=== PATIENT | male | born 1980 | race African-American/Black ===

== ENCOUNTER 2016-12-11 16:44 | Inpatient (IN) | payer OTHER ==
[2016-12-11 18:54] VITALS: BMI 25.1
--- NOTE | 2016-12-11 20:58 | HP ---
CIWA Score - CIWA Score Nausea/Vomitin-No Nausea/No Vomiting Muscle Tremors: None Anxiety: 4-Mod. Anxious/Guarded Agitation: 4-Moderately Restless Paroxysmal Sweats: 1-Minimal Palms Moist Orientation: 1-Uncertain about Date Tacttile Disturbances: 0-None Auditory Disturbances: 0-None Visual Disturbances: 4-Moderate Hallucinations Headache: 2-Mild CIWA-Ar Total Score: 16 Admission ROS BHS - HPI Chief Complaint: C/O WITHDRAWALS SX'S FROM ALCOHOL. SEEKING DETOX TXMENT Allergies/Adverse Reactions: Allergies Allergy/AdvReac Type Severity Reaction Status Date / Time No Known Allergies Allergy Verified 12/11/16 20:52 History of Present Illness: 36 Y.O. MALE WITH ALCOHOLISM ADMITTED TO DETOX. THIS IS CLIENTS FIRST TIME IN DETOX TXMENT. WAS IN AN OUT PATIENT TXMENT PROGRAM 04/2016.REPORTS A 3 YEAR HX OF ALCOHOL DEPENDENCE. SELF REFERRED. DENIES ANY SIGNIFICANT PERIOD OF CLEAN TIME. Exam Limitations: No Limitations - Ebola screening Have you traveled outside of the country in the last 21 days: No Have you had contact with anyone from an Ebola affected area: No Have you been sick,other than usual withdrawal symptoms: No Do you have a fever: No - Review of Systems Constitutional: Chills, Loss of Appetite, Night Sweats EENT: reports: No Symptoms Reported Respiratory: reports: No Symptoms reported Cardiac: reports: No Symptoms Reported GI: reports: Poor Appetite, Poor Fluid Intake, Vomiting : reports: No Symptoms Reported Musculoskeletal: reports: Back Pain Integumentary: reports: No Symptoms Reported Neuro: reports: No Symptoms reported Endocrine: reports: No Symptoms Reported Hematology: reports: No Symptoms Reported Psychiatric: reports: Anxious, Depressed Other Systems: Reviewed and Negative Patient History - Patient Medical History Hx Anemia: No Hx Asthma: No Hx Chronic Obstructive Pulmonary Disease (COPD): No Hx Cancer: No Hx Cardiac Disorders: No Hx Congestive Heart Failure: No Hx Hypertension: No Hx Hypercholesterolemia: No Hx Pacemaker: No HX Cerebrovascular Accident: No Hx Seizures: No Hx Dementia: No Hx Diabetes: No Hx Gastrointestinal Disorders: No Hx Liver Disease: No Hx Genitourinary Disorders: No Hx Sexually Transmitted Disorders: No Hx Renal Disease (ESRD): No Hx Thyroid Disease: No Hx Human Immunodeficiency Virus (HIV): No Hx Hepatitis C: No Hx Depression: Yes (NO MGMT) Hx Suicide Attempt: No Hx Bipolar Disorder: No Hx Schizophrenia: No Other Medical History: DENIES - Patient Surgical History Past Surgical History: No - PPD History Previous Implant?: Yes Documented Results: Negative w/o proof Implanted On Prior [facility] Admission?: Yes PPD to be Administered?: Yes - Smoking Cessation Smoking history: Current every day smoker Have you smoked in the past 12 months: Yes Aproximately how many cigarettes per day: 10 Cigars Per Day: 0 Hx Chewing Tobacco Use: Yes Initiated information on smoking cessation: Yes 'Breaking Loose' booklet given: 12/11/16 - Substance & Tx. History Hx Alcohol Use: Yes Hx Substance Use: Yes Substance Use Type: Alcohol, Marijuana Hx Substance Use Treatment: Yes ([facility]) - Substances Abused BEER/LIQUOR Route: Oral Frequency: Daily Amount used: 3-40OZ/ 2LITER Age of first use: 23 Date of Last Use: 12/10/16 THC Route: Smoking Frequency: Daily Amount used: 3 BLUNTS Age of first use: 20 Date of Last Use: 12/10/16 Family Disease History - Family Disease History Family Disease History: Other: Father (ALCOHOLISM) Admission Physical Exam S - Vital Signs Vital Signs: Vital Signs - 24 hr 12/11/16 18:51 Temperature 97.9 F Pulse Rate 69 Respiratory 20 Rate Blood Pressure 112/73 - Physical General Appearance: Yes: Appropriately Dressed, Anxious HEENTM: Yes: EOMI, Normocephalic, Normal Voice, Pharynx Normal Respiratory: Yes: Chest Non-Tender, Lungs Clear, Normal Breath Sounds, No Respiratory Distress, No Accessory Muscle Use Neck: Yes: No masses,lesions,Nodules, Supple, Trachea in good position Breast: Yes: Breast Exam Deferred Cardiology: Yes: Regular Rhythm, Regular Rate, S1, S2 Abdominal: Yes: Normal Bowel Sounds, Non Tender, Soft Genitourinary: Yes: Within Normal Limits Back: Yes: Normal Inspection Musculoskeletal: Yes: full range of Motion, Gait Steady Extremities: Yes: Normal Capillary Refill, Normal Range of Motion, Non-Tender, Tremors Neurological: Yes: Alert, Motor Strength 5/5 Integumentary: Yes: Normal Color, Dry, Warm Lymphatic: Yes: Within Normal Limits - Diagnostic (1) Alcohol dependence with uncomplicated withdrawal Current Visit: Yes Status: Chronic (2) Cannabis dependence, uncomplicated Current Visit: Yes Status: Chronic (3) Nicotine dependence Current Visit: Yes Status: Chronic Qualifiers: Nicotine product type: cigarettes Substance use status: uncomplicated Qualified Code(s): F17.210 - Nicotine dependence, cigarettes, uncomplicated; F17.210 - Nicotine dependence, cigarettes, uncomplicated Cleared for Admission S - Detox or Rehab [facility] Level of Care: Medically Managed Detox Regimen/Protocol: Librium BHS Breath Alcohol Content Breath Alcohol Content: 0 Urine Drug Screen - Results Drug Screen Negative: No Urine Drug Screen Results: THC-Marijuana
[2016-12-11] MEDS ORDERED: MAGNESIUM HYDROX 2400MG/30ML ORAL SUSPENSION 30 ML CUP PO PRN (21:15)
[2016-12-11] MEDS ORDERED: MAG HYDROX/AL HYDROX/SIMETH 30 ML UNIT-DOSE CUP PO PRN (21:15)
[2016-12-11] MEDS ORDERED: MAGNESIUM CITRATE 300 ML BOTTLE PO PRN (21:15)
[2016-12-11] MEDS ORDERED: IBUPROFEN 400 MG TABLET (FP) PO PRN (21:15)
[2016-12-11] MEDS ORDERED: hydrOXYzine PAMOATE 50 MG CAPSULE (FP) PO PRN (21:15)
[2016-12-11] MEDS ORDERED: MENTHOL/PHENOL 1 EACH UD MM PRN (21:15)
[2016-12-11] MEDS ORDERED: guaiFENesin/D-METHORPHAN HB 10 ML UNIT-DOSE CUPS PO PRN (21:15)
[2016-12-11] MEDS ORDERED: P-EPHED 60MG/TRIPROLIDI 2.5MG TABLET PO PRN (21:15)
[2016-12-11] MEDS ORDERED: LOPERAMIDE HCL 2 MG CAPSULE PO PRN (21:15)
[2016-12-11] MEDS ORDERED: chlordiazePOXIDE HCL 25 MG CAPSULE PO PRN (21:15)
[2016-12-11] MEDS ORDERED: ACETAMINOPHEN 325 MG TABLET (FP) PO PRN (21:15)
[2016-12-11] MEDS: chlordiazePOXIDE HCL 25 MG CAPSULE PO SCH (22:57)
[2016-12-11] MEDS: THIAMINE HCL 100 MG TABLET (FP) PO SCH (22:57)
[2016-12-11] MEDS: NICOTINE 14 MG/24 HOURS TOPICAL PATCH TD SCH (23:05)
[2016-12-11 23:18] LABS: URINE APPEARANCE CLEAR; URINE BILIRUBIN NEGATIVE (NEGATIVE); URINE BLOOD 2+ (NEGATIVE); URINE COLOR YELLOW; URINE GLUCOSE (UA) NEGATIVE (NEGATIVE); URINE KETONE 1+ (NEGATIVE); URINE LEUK ESTERASE NEGATIVE (NEGATIVE); URINE NITRITE NEGATIVE (NEGATIVE); URINE PROTEIN NEGATIVE (NEGATIVE); URINE UROBILINOGEN NEGATIVE mg/dL (0.2-1.0)
[2016-12-11 23:36] LABS: URINE MUCUS RARE; URINE RBC 11 /hpf (0-3); URINE WBC <1 /hpf (3-5)
[2016-12-12] MEDS: chlordiazePOXIDE HCL 25 MG CAPSULE PO SCH ×4 (06:00→22:25)
--- NOTE | 2016-12-12 07:41 | CONSULT ---
[facility] Psychiatric Consult - Data Date of interview: 12/12/16 Admission source: [facility] Identifying data: This is 36 years old male with no psychiatric hospitalization history intoxicated with: Alcohol, Cannabis, Nicotine Substance Abuse History: - Smoking Cessation. Smoking history: Current every day smoker. Have you smoked in the past 12 months: Yes. Aproximately how many cigarettes per day: 10. Cigars Per Day: 0. Hx Chewing Tobacco Use: Yes. Initiated information on smoking cessation: Yes. 'Breaking Loose' booklet given : 12/11/16. - Substance & Tx. History. Hx Alcohol Use: Yes. Hx Substance Use : Yes. Substance Use Type: Alcohol, Marijuana. Hx Substance Use Treatment: [facility] ([facility] - Substances Abused. BEER/LIQUOR. Route: Oral. Frequency: Daily. Amount used: 3-40OZ/ 2LITER. Age of first use: 23. Date of Last Use: 12/10/16. THC. Route: Smoking. Frequency: Daily. Amount used: 3 BLUNTS. Age of first use: 20. Date of Last Use: 12/10/16 Medical History: Denies significant medical issues Psychiatric History: Denies past psychiatric history Physical/Sexual Abuse/Trauma History: Denies Additional Comment: Observation. Detox Unit Care Protocol Mental Status Exam - Mental Status Exam Alert and Oriented to: Person Cognitive Function: Fair Patient Appearance: Unkempt Mood: Sad Affect: Flat Patient Behavior: Sedated Speech Pattern: Delayed Voice Loudness: Mildly Soft/Quiet Thought Process: Circumstantial Thought Disorder: Being Controlled Hallucinations: Denies Suicidal Ideation: Denies Homicidal Ideation: Denies Insight/Judgement: Fair Sleep: Difficulty falling asleep Appetite: Weight loss Muscle strength/Tone: Normal Gait/Station: Normal Additional Comments: Observation. Detox Unit Care Protocol Psychiatric Findings - Problem List ([place] 1, 2,3) (1) Alcohol dependence with uncomplicated withdrawal Current Visit: Yes Status: Chronic (2) Cannabis dependence, uncomplicated Current Visit: Yes Status: Chronic (3) Nicotine dependence Current Visit: Yes Status: Chronic Qualifiers: Nicotine product type: cigarettes Substance use status: uncomplicated Qualified Code(s): F17.210 - Nicotine dependence, cigarettes, uncomplicated; F17.210 - Nicotine dependence, cigarettes, uncomplicated (4) Drug-induced mood disorder Current Visit: Yes Status: Suspected - Initial Treatment Plan Initial Treatment Plan: Observation. Detox Unit Care Protocol
[2016-12-12 09:43] LABS: MCH 32.9 pg (25.7-33.7); MCHC 33.8 g/dl (32.0-35.9); MEAN CELL VOLUME 97.3 fl (80-96); MEAN PLT VOLUME 8.1 fl (7.5-11.1); PLATELET COUNT 280 K/MM3 (134-434); RDW 12.7 % (11.9-15.9); WHITE BLOOD COUNT 7.6 K/mm3 (4.0-10.0)
[2016-12-12 10:06] LABS: ALBUMIN 3.6 g/dl (3.4-5.0); ALK PHOS 65 U/L (45-117); ANION GAP 5 (8-16); CALCIUM 9.1 mg/dL (8.5-10.1); CO2 31 mmol/L (21-32); CREATININE 1.1 mg/dL (0.7-1.3); GLUCOSE,RANDOM 103 mg/dL (74-106); SGOT/AST 18 U/L (15-37); SGPT/ALT 23 U/L (12-78); TOT PROT 6.9 g/dl (6.4-8.2)
[2016-12-12] MEDS: NICOTINE 14 MG/24 HOURS TOPICAL PATCH TD SCH (10:35)
[2016-12-12] MEDS: PRENATAL VITAMINS W/ FOLIC ACID TABLET (FP) PO SCH (10:35)
--- NOTE | 2016-12-12 11:34 | PN ---
S CIWA - CIWA Score Nausea/Vomitin Muscle Tremors: 3 Anxiety: 3 Agitation: 2 Paroxysmal Sweats: 1-Minimal Palms Moist Orientation: 0-Oriented Tacttile Disturbances: 1-Very Mild Itch/Numbness Auditory Disturbances: 1-Very Mild Visual Disturbances: 0-None Headache: 2-Mild CIWA-Ar Total Score: 16 BHS Progress Note (SOAP) Subjective: alert,irritable,anxious,interrupted sleep,tremor Objective: 12/12/16 11:31 Vital Signs Temperature 96.3 F L 12/12/16 10:11 Pulse Rate 54 L 12/12/16 10:11 Respiratory Rate 18 12/12/16 10:11 Blood Pressure 108/64 12/12/16 10:11 O2 Sat by Pulse Oximetry (%) 12/12/16 11:32 ekg sinus bradycardia 55/min no chest pain,no sob,no dizziness Laboratory Last Values WBC 7.6 K/mm3 (4.0-10.0) 12/12/16 07:00 RBC 3.92 M/mm3 (4.00-5.60) L 12/12/16 07:00 Hgb 12.9 GM/dL (11.7-16.9) 12/12/16 07:00 Hct 38.2 % (35.4-49) 12/12/16 07:00 MCV 97.3 fl (80-96) H 12/12/16 07:00 MCH 32.9 pg (25.7-33.7) 12/12/16 07:00 MCHC 33.8 g/dl (32.0-35.9) 12/12/16 07:00 RDW 12.7 % (11.9-15.9) 12/12/16 07:00 Plt Count 280 K/MM3 (134-434) 12/12/16 07:00 MPV 8.1 fl (7.5-11.1) 12/12/16 07:00 Sodium 140 mmol/L (136-145) 12/12/16 07:00 Potassium 4.3 mmol/L (3.5-5.1) 12/12/16 07:00 Chloride 104 mmol/L (98-107) 12/12/16 07:00 Carbon Dioxide 31 mmol/L (21-32) 12/12/16 07:00 Anion Gap 5 (8-16) L 12/12/16 07:00 BUN 17 mg/dL (7-18) 12/12/16 07:00 Creatinine 1.1 mg/dL (0.7-1.3) 12/12/16 07:00 Creat Clearance w eGFR > 60 (>60) 12/12/16 07:00 Random Glucose 103 mg/dL (74-106) 12/12/16 07:00 Calcium 9.1 mg/dL (8.5-10.1) 12/12/16 07:00 Total Bilirubin 1.0 mg/dL (0.2-1.0) 12/12/16 07:00 AST 18 U/L (15-37) 12/12/16 07:00 ALT 23 U/L (12-78) 12/12/16 07:00 Alkaline Phosphatase 65 U/L (45-117) 12/12/16 07:00 Total Protein 6.9 g/dl (6.4-8.2) 12/12/16 07:00 Albumin 3.6 g/dl (3.4-5.0) 12/12/16 07:00 Urine Color Yellow 12/11/16 21:39 Urine Appearance Clear 12/11/16 21:39 Urine pH 5.0 (5.0-8.0) 12/11/16 21:39 Ur Specific [place] >= 1.030 (1.005-1.025) H 12/11/16 21:39 Urine Protein Negative (NEGATIVE) 12/11/16 21:39 Urine Glucose (UA) Negative (NEGATIVE) 12/11/16 21:39 Urine Ketones 1+ (NEGATIVE) H 12/11/16 21:39 Urine Blood 2+ (NEGATIVE) H 12/11/16 21:39 Urine Nitrite Negative (NEGATIVE) 12/11/16 21:39 Urine Bilirubin Negative (NEGATIVE) 12/11/16 21:39 Urine Urobilinogen Negative mg/dL (0.2-1.0) 12/11/16 21:39 Urine RBC 11 /hpf (0-3) 12/11/16 21:39 Urine WBC <1 /hpf (3-5) 12/11/16 21:39 Ur Epithelial Cells Rare /hpf (FEW) 12/11/16 21:39 Urine Mucus Rare 12/11/16 21:39 RPR Titer Nonreactive (NONREACTIVE) 12/12/16 07:00 12/12/16 11:33 labs pending Assessment: 12/12/16 11:33 withdrawal symptom Plan: continue detox
[2016-12-12 11:40] LABS: HIV 1 & 2 AB NEGATIVE; HIV 1 AGp24 NEGATIVE
--- NOTE | 2016-12-12 11:52 | EKG ---
Test Reason : Blood Pressure : / mmHG Vent. Rate : 055 BPM Atrial Rate : 055 BPM P-R Int : 156 ms QRS Dur : 094 ms QT Int : 412 ms P-R-T Axes : 062 069 048 degrees QTc Int : 394 ms SINUS BRADYCARDIA OTHERWISE NORMAL ECG NO PREVIOUS ECGS AVAILABLE Confirmed by MAC ARANGO, ELICIA ([id number]) on 12/12/2016 11:52:26 AM Referred By: Confirmed By:ELICIA WATTS MD
[2016-12-12] MEDS ORDERED: FLU VACCINE QUAD 60 MCG/0.5 ML (MDV 17-18) IM ONE (12:00)
[2016-12-12] MEDS: NICOTINE POLACRILEX 2 MG GUM BC PRN (18:52)
[2016-12-12] MEDS: diphenhydrAMINE HCL 50 MG CAPSULE PO PRN (22:25)
[2016-12-12] MEDS: THIAMINE HCL 100 MG TABLET (FP) PO SCH (22:25)
[2016-12-13] MEDS: chlordiazePOXIDE HCL 25 MG CAPSULE PO SCH ×3 (05:39→17:52)
[2016-12-13] MEDS: PRENATAL VITAMINS W/ FOLIC ACID TABLET (FP) PO SCH (11:01)
[2016-12-13] MEDS: NICOTINE 14 MG/24 HOURS TOPICAL PATCH TD SCH (11:02)
--- NOTE | 2016-12-13 12:40 | PN ---
S CIWA - CIWA Score Nausea/Vomitin Muscle Tremors: 3 Anxiety: 3 Agitation: 2 Paroxysmal Sweats: 1-Minimal Palms Moist Orientation: 0-Oriented Tacttile Disturbances: 1-Very Mild Itch/Numbness Auditory Disturbances: 1-Very Mild Visual Disturbances: 0-None Headache: 2-Mild CIWA-Ar Total Score: 16 BHS Progress Note (SOAP) Subjective: ALERT,IRRITABLE,ANXIOUS,INTERRUPTED SLEEP,TREMOR Objective: 12/13/16 12:39 Vital Signs Temperature 97 F L 12/13/16 10:39 Pulse Rate 62 12/13/16 10:39 Respiratory Rate 20 12/13/16 10:39 Blood Pressure 105/66 12/13/16 10:39 O2 Sat by Pulse Oximetry (%) Laboratory Last Values WBC 7.6 K/mm3 (4.0-10.0) 12/12/16 07:00 RBC 3.92 M/mm3 (4.00-5.60) L 12/12/16 07:00 Hgb 12.9 GM/dL (11.7-16.9) 12/12/16 07:00 Hct 38.2 % (35.4-49) 12/12/16 07:00 MCV 97.3 fl (80-96) H 12/12/16 07:00 MCH 32.9 pg (25.7-33.7) 12/12/16 07:00 MCHC 33.8 g/dl (32.0-35.9) 12/12/16 07:00 RDW 12.7 % (11.9-15.9) 12/12/16 07:00 Plt Count 280 K/MM3 (134-434) 12/12/16 07:00 MPV 8.1 fl (7.5-11.1) 12/12/16 07:00 Sodium 140 mmol/L (136-145) 12/12/16 07:00 Potassium 4.3 mmol/L (3.5-5.1) 12/12/16 07:00 Chloride 104 mmol/L (98-107) 12/12/16 07:00 Carbon Dioxide 31 mmol/L (21-32) 12/12/16 07:00 Anion Gap 5 (8-16) L 12/12/16 07:00 BUN 17 mg/dL (7-18) 12/12/16 07:00 Creatinine 1.1 mg/dL (0.7-1.3) 12/12/16 07:00 Creat Clearance w eGFR > 60 (>60) 12/12/16 07:00 Random Glucose 103 mg/dL (74-106) 12/12/16 07:00 Calcium 9.1 mg/dL (8.5-10.1) 12/12/16 07:00 Total Bilirubin 1.0 mg/dL (0.2-1.0) 12/12/16 07:00 AST 18 U/L (15-37) 12/12/16 07:00 ALT 23 U/L (12-78) 12/12/16 07:00 Alkaline Phosphatase 65 U/L (45-117) 12/12/16 07:00 Total Protein 6.9 g/dl (6.4-8.2) 12/12/16 07:00 Albumin 3.6 g/dl (3.4-5.0) 12/12/16 07:00 Urine Color Yellow 12/11/16 21:39 Urine Appearance Clear 12/11/16 21:39 Urine pH 5.0 (5.0-8.0) 12/11/16 21:39 Ur Specific [place] >= 1.030 (1.005-1.025) H 12/11/16 21:39 Urine Protein Negative (NEGATIVE) 12/11/16 21:39 Urine Glucose (UA) Negative (NEGATIVE) 12/11/16 21:39 Urine Ketones 1+ (NEGATIVE) H 12/11/16 21:39 Urine Blood 2+ (NEGATIVE) H 12/11/16 21:39 Urine Nitrite Negative (NEGATIVE) 12/11/16 21:39 Urine Bilirubin Negative (NEGATIVE) 12/11/16 21:39 Urine Urobilinogen Negative mg/dL (0.2-1.0) 12/11/16 21:39 Urine RBC 11 /hpf (0-3) 12/11/16 21:39 Urine WBC <1 /hpf (3-5) 12/11/16 21:39 Ur Epithelial Cells Rare /hpf (FEW) 12/11/16 21:39 Urine Mucus Rare 12/11/16 21:39 RPR Titer Nonreactive (NONREACTIVE) 12/12/16 07:00 HIV 1&2 Antibody Screen Negative 12/12/16 07:00 HIV P24 Antigen Negative 12/12/16 07:00 Assessment: 12/13/16 12:39 WITHDRAWAL SYMPTOM Plan: CONTINUE DETOX
[2016-12-13] MEDS: NICOTINE POLACRILEX 2 MG GUM BC PRN (17:53)
[2016-12-13] MEDS: THIAMINE HCL 100 MG TABLET (FP) PO SCH (22:11)
[2016-12-13] MEDS: diphenhydrAMINE HCL 50 MG CAPSULE PO PRN (22:12)
[2016-12-13] MEDS: chlordiazePOXIDE 5 MG CAPSULE PO SCH (22:12)
[2016-12-14] MEDS: chlordiazePOXIDE 5 MG CAPSULE PO SCH ×3 (06:28→17:28)
[2016-12-14] MEDS: PRENATAL VITAMINS W/ FOLIC ACID TABLET (FP) PO SCH (10:55)
[2016-12-14] MEDS: NICOTINE 14 MG/24 HOURS TOPICAL PATCH TD SCH (10:57)
--- NOTE | 2016-12-14 11:03 | PN ---
S Progress Note (SOAP) Subjective: alert,irritable,anxious,interrupted sleep Objective: 12/14/16 11:02 Vital Signs Temperature 97.9 F 12/14/16 10:00 Pulse Rate 52 L 12/14/16 10:00 Respiratory Rate 20 12/14/16 10:00 Blood Pressure 103/61 12/14/16 10:00 O2 Sat by Pulse Oximetry (%) Assessment: 12/14/16 11:02 withdrawal symptom Plan: continue detox,discharge in am
[2016-12-14] MEDS: chlordiazePOXIDE HCL 10 MG CAPSULE PO SCH (22:08)
[2016-12-14] MEDS: THIAMINE HCL 100 MG TABLET (FP) PO SCH (22:08)
[2016-12-15] MEDS: chlordiazePOXIDE HCL 10 MG CAPSULE PO SCH (05:32)
[2016-12-15 06:33] VITALS: BP 119/58; PULSE 69; TEMP 97.3
--- NOTE | 2016-12-15 10:54 | DS ---
[facility] Detox Discharge Summary Admission Date: 12/11/16 Discharge Date: 12/15/16 - History Present History: Alcohol Dependence, Cannabis Dependence Pertinent Past History: Denies - Physical Exam Results Vital Signs: Vital Signs Temperature 97.3 F L 12/15/16 06:00 Pulse Rate 69 12/15/16 06:00 Respiratory Rate 18 12/15/16 06:00 Blood Pressure 119/58 12/15/16 06:00 O2 Sat by Pulse Oximetry (%) Pertinent Admission Physical Exam Findings: Withdrawal sx. Laboratory Last Values WBC 7.6 K/mm3 (4.0-10.0) 12/12/16 07:00 RBC 3.92 M/mm3 (4.00-5.60) L 12/12/16 07:00 Hgb 12.9 GM/dL (11.7-16.9) 12/12/16 07:00 Hct 38.2 % (35.4-49) 12/12/16 07:00 MCV 97.3 fl (80-96) H 12/12/16 07:00 MCH 32.9 pg (25.7-33.7) 12/12/16 07:00 MCHC 33.8 g/dl (32.0-35.9) 12/12/16 07:00 RDW 12.7 % (11.9-15.9) 12/12/16 07:00 Plt Count 280 K/MM3 (134-434) 12/12/16 07:00 MPV 8.1 fl (7.5-11.1) 12/12/16 07:00 Sodium 140 mmol/L (136-145) 12/12/16 07:00 Potassium 4.3 mmol/L (3.5-5.1) 12/12/16 07:00 Chloride 104 mmol/L (98-107) 12/12/16 07:00 Carbon Dioxide 31 mmol/L (21-32) 12/12/16 07:00 Anion Gap 5 (8-16) L 12/12/16 07:00 BUN 17 mg/dL (7-18) 12/12/16 07:00 Creatinine 1.1 mg/dL (0.7-1.3) 12/12/16 07:00 Creat Clearance w eGFR > 60 (>60) 12/12/16 07:00 Random Glucose 103 mg/dL (74-106) 12/12/16 07:00 Calcium 9.1 mg/dL (8.5-10.1) 12/12/16 07:00 Total Bilirubin 1.0 mg/dL (0.2-1.0) 12/12/16 07:00 AST 18 U/L (15-37) 12/12/16 07:00 ALT 23 U/L (12-78) 12/12/16 07:00 Alkaline Phosphatase 65 U/L (45-117) 12/12/16 07:00 Total Protein 6.9 g/dl (6.4-8.2) 12/12/16 07:00 Albumin 3.6 g/dl (3.4-5.0) 12/12/16 07:00 Urine Color Yellow 12/11/16 21:39 Urine Appearance Clear 12/11/16 21:39 Urine pH 5.0 (5.0-8.0) 12/11/16 21:39 Ur Specific [place] >= 1.030 (1.005-1.025) H 12/11/16 21:39 Urine Protein Negative (NEGATIVE) 12/11/16 21:39 Urine Glucose (UA) Negative (NEGATIVE) 12/11/16 21:39 Urine Ketones 1+ (NEGATIVE) H 12/11/16 21:39 Urine Blood 2+ (NEGATIVE) H 12/11/16 21:39 Urine Nitrite Negative (NEGATIVE) 12/11/16 21:39 Urine Bilirubin Negative (NEGATIVE) 12/11/16 21:39 Urine Urobilinogen Negative mg/dL (0.2-1.0) 12/11/16 21:39 Urine RBC 11 /hpf (0-3) 12/11/16 21:39 Urine WBC <1 /hpf (3-5) 12/11/16 21:39 Ur Epithelial Cells Rare /hpf (FEW) 12/11/16 21:39 Urine Mucus Rare 12/11/16 21:39 RPR Titer Nonreactive (NONREACTIVE) 12/12/16 07:00 HIV 1&2 Antibody Screen Negative 12/12/16 07:00 HIV P24 Antigen Negative 12/12/16 07:00 labs noted - Treatment Hospital Course: Detox Protocol Followed, Detoxed Safely, Responded well, Discharged Condition Good, Rehab Referral Accepted Patient has Accepted a Rehab Referral to: [facility] - Medication Discharge Medications: Ambulatory Orders NK [No Known Home Medication] 12/11/16 - Diagnosis (1) Alcohol dependence with uncomplicated withdrawal Current Visit: Yes Status: Chronic (2) Cannabis dependence, uncomplicated Current Visit: Yes Status: Chronic (3) Drug-induced mood disorder Current Visit: Yes Status: Suspected (4) Nicotine dependence Current Visit: Yes Status: Chronic Qualifiers: Nicotine product type: cigarettes Substance use status: uncomplicated Qualified Code(s): F17.210 - Nicotine dependence, cigarettes, uncomplicated; F17.210 - Nicotine dependence, cigarettes, uncomplicated - AMA Did Patient Leave Against Medical Advice: No
== END 2016-12-15 08:55 | disposition home or self-care (01) | DRG 775 ==
LOC: YASAS 16:44 → Y6N 20:59
PROVIDERS: ADMIT Internal Medicine; ATTEND Internal Medicine
PROC: HZ2ZZZZ Detoxification Services for Substance Abuse Treatment (ICD-10-PCS; principal; 2016-12-11)
DX: F10.230 Alcohol dependence with withdrawal, uncomplicated (principal); F12.20 Cannabis dependence, uncomplicated; F17.210 Nicotine dependence, cigarettes, uncomplicated; F19.24 Other psychoactive substance dependence with psychoactive substance-induced mood disorder; R00.1 Bradycardia, unspecified
CPT/HCPCS: 36415; 80053; 81003; 81015; 85027; 86593; 87389; 93005; 93010

== ENCOUNTER 2017-04-01 12:11 | Inpatient (IN) | payer OTHER ==
[2017-04-01 15:59] VITALS: BMI 24.7
[2017-04-01] MEDS ORDERED: MAGNESIUM CITRATE 300 ML BOTTLE PO PRN (19:10)
[2017-04-01] MEDS ORDERED: LOPERAMIDE HCL 2 MG CAPSULE PO PRN (19:10)
[2017-04-01] MEDS ORDERED: IBUPROFEN 400 MG TABLET (FP) PO PRN (19:10)
[2017-04-01] MEDS ORDERED: NICOTINE POLACRILEX 2 MG GUM BC PRN (19:10)
[2017-04-01] MEDS ORDERED: MAG HYDROX/AL HYDROX/SIMETH 30 ML UNIT-DOSE CUP PO PRN (19:10)
[2017-04-01] MEDS ORDERED: MENTHOL/PHENOL 1 EACH UD MM PRN (19:10)
[2017-04-01] MEDS ORDERED: ACETAMINOPHEN 325 MG TABLET (FP) PO PRN (19:10)
[2017-04-01] MEDS ORDERED: MAGNESIUM HYDROX 2400MG/30ML ORAL SUSPENSION 30 ML CUP PO PRN (19:10)
[2017-04-01] MEDS ORDERED: P-EPHED 60MG/TRIPROLIDI 2.5MG TABLET PO PRN (19:10)
[2017-04-01] MEDS ORDERED: guaiFENesin/D-METHORPHAN HB 10 ML UNIT-DOSE CUPS PO PRN (19:10)
--- NOTE | 2017-04-01 19:10 | HP ---
CIWA Score - CIWA Score Nausea/Vomitin-Mild Nausea/No Vomiting Muscle Tremors: 4-Moderate,w/Arms Extend Anxiety: 4-Mod. Anxious/Guarded Agitation: 4-Moderately Restless Paroxysmal Sweats: 1-Minimal Palms Moist Orientation: 0-Oriented Tacttile Disturbances: 0-None Auditory Disturbances: 0-None Visual Disturbances: 0-None Headache: 0-None Present CIWA-Ar Total Score: 14 Admission ROS BHS - HPI Chief Complaint: withdrawal sx Allergies/Adverse Reactions: Allergies Allergy/AdvReac Type Severity Reaction Status Date / Time No Known Allergies Allergy Verified 04/01/17 16:24 History of Present Illness: 36 years old male with long history of alcohol nicotine dependence has depression is admitted to detox Exam Limitations: No Limitations - Ebola screening Have you traveled outside of the country in the last 21 days: No Have you had contact with anyone from an Ebola affected area: No Have you been sick,other than usual withdrawal symptoms: No Do you have a fever: No - Review of Systems Constitutional: Loss of Appetite, Changes in sleep, Unintentional Wgt. Loss, Unexplained wgt Loss EENT: reports: No Symptoms Reported Respiratory: reports: No Symptoms reported Cardiac: reports: No Symptoms Reported GI: reports: Nausea, Poor Fluid Intake, Abdominal cramping : reports: No Symptoms Reported Musculoskeletal: reports: No Symptoms Reported Integumentary: reports: No Symptoms Reported Neuro: reports: Tremors Endocrine: reports: No Symptoms Reported Hematology: reports: No Symptoms Reported Psychiatric: reports: Judgement Intact, Orientated x3, Depressed Other Systems: Reviewed and Negative Patient History - Patient Medical History Hx Anemia: No Hx Asthma: No Hx Chronic Obstructive Pulmonary Disease (COPD): No Hx Cancer: No Hx Cardiac Disorders: No Hx Congestive Heart Failure: No Hx Hypertension: No Hx Hypercholesterolemia: No Hx Pacemaker: No HX Cerebrovascular Accident: No Hx Seizures: No Hx Dementia: No Hx Diabetes: No Hx Gastrointestinal Disorders: No Hx Liver Disease: No Hx Genitourinary Disorders: No Hx Sexually Transmitted Disorders: No Hx Renal Disease (ESRD): No Hx Thyroid Disease: No Hx Human Immunodeficiency Virus (HIV): No Hx Hepatitis C: No Hx Depression: Yes Hx Suicide Attempt: No Hx Bipolar Disorder: No Hx Schizophrenia: No - Patient Surgical History Past Surgical History: No Hx Neurologic Surgery: No Hx Cataract Extraction: No Hx Cardiac Surgery: No Hx Lung Surgery: No Hx Breast Surgery: No Hx Breast Biopsy: No Hx Abdominal Surgery: No Hx Appendectomy: No Hx Cholecystectomy: No Hx Genitourinary Surgery: No Hx Orthopedic Surgery: No - PPD History Previous Implant?: Yes Documented Results: Negative w/proof Implanted On Prior [facility] Admission?: Yes Date: 12/13/16 Results: 0 mm PPD to be Administered?: No - Smoking Cessation Smoking history: Current every day smoker Have you smoked in the past 12 months: Yes Aproximately how many cigarettes per day: 10 Cigars Per Day: 0 Hx Chewing Tobacco Use: No Initiated information on smoking cessation: Yes 'Breaking Loose' booklet given: 04/01/17 - Substance & Tx. History Hx Alcohol Use: Yes Hx Substance Use: Yes Substance Use Type: Alcohol, Marijuana Hx Substance Use Treatment: Yes (12/2016) - Substances Abused Alcohol Route: Oral Frequency: Daily Amount used: 7 24 oz cans beer Age of first use: 20 Date of Last Use: 03/31/17 Marijuana/Hashish Route: Smoking Frequency: Daily Amount used: 2-3 blunts Age of first use: 18 Date of Last Use: 03/31/17 met Route: Oral Frequency: 1-3 times last 30 days Amount used: 3 pills Age of first use: 35 Date of Last Use: 03/30/17 Ectasy Route: Oral Frequency: 1-3 times last 30 days Amount used: 3 pills Age of first use: 35 Date of Last Use: 03/30/17 Family Disease History - Family Disease History Family Disease History: Other: Father (ALCOHOLISM/no contact) Admission Physical Exam [facility] - Vital Signs Vital Signs: Vital Signs - 24 hr 04/01/17 15:55 Temperature 96.5 F L Pulse Rate 60 Respiratory 19 Rate Blood Pressure 120/68 - Physical General Appearance: Yes: Appropriately Dressed, Mild Distress, Thin, Tremorous, Irritable, Sweating, Anxious HEENTM: Yes: Hearing grossly Normal, Normal ENT Inspection, Normocephalic, Normal Voice Respiratory: Yes: Chest Non-Tender, Lungs Clear, Normal Breath Sounds, No Respiratory Distress, No Accessory Muscle Use Neck: Yes: Supple, Trachea in good position Breast: Yes: Breasts Symetrical Cardiology: Yes: Regular Rhythm, S1, S2, Bradycardia Abdominal: Yes: Normal Bowel Sounds, Non Tender, Soft Genitourinary: Yes: Within Normal Limits Back: Yes: Normal Inspection Musculoskeletal: Yes: full range of Motion, Gait Steady Extremities: Yes: Normal Inspection, Normal Range of Motion, Non-Tender, Tremors Neurological: Yes: Fully Oriented, Alert, Motor Strength 5/5, Normal Response, Depressed Affect Integumentary: Yes: Warm Lymphatic: Yes: Within Normal Limits - Diagnostic (1) Weight loss Current Visit: Yes Status: Acute (2) Depression (emotion) Current Visit: Yes Status: Suspected Qualifiers: Depression Type: dysthymia Qualified Code(s): F34.1 - Dysthymic disorder (3) Alcohol dependence with uncomplicated withdrawal Current Visit: Yes Status: Acute (4) Nicotine dependence Current Visit: Yes Status: Acute Qualifiers: Nicotine product type: cigarettes Substance use status: in withdrawal Qualified Code(s): F17.213 - Nicotine dependence, cigarettes, with withdrawal Cleared for Admission [facility] - Detox or Rehab [facility] Level of Care: Medically Managed Detox Regimen/Protocol: Librium [facility] Breath Alcohol Content Breath Alcohol Content: 0 Urine Drug Screen - Results Drug Screen Negative: No Urine Drug Screen Results: THC-Marijuana, MET-Methamphetamine
[2017-04-01] MEDS: chlordiazePOXIDE HCL 25 MG CAPSULE PO PRN (20:12)
[2017-04-01 23:02] LABS: URINE APPEARANCE CLOUDY; URINE BILIRUBIN NEGATIVE (NEGATIVE); URINE BLOOD NEGATIVE (NEGATIVE); URINE COLOR YELLOW; URINE GLUCOSE (UA) NEGATIVE (NEGATIVE); URINE KETONE NEGATIVE (NEGATIVE); URINE LEUK ESTERASE NEGATIVE (NEGATIVE); URINE NITRITE NEGATIVE (NEGATIVE); URINE PROTEIN NEGATIVE (NEGATIVE); URINE UROBILINOGEN NEGATIVE mg/dL (0.2-1.0)
[2017-04-01] MEDS: THIAMINE HCL 100 MG TABLET (FP) PO SCH (23:09)
[2017-04-01] MEDS: chlordiazePOXIDE HCL 25 MG CAPSULE PO SCH (23:09)
[2017-04-02] MEDS: chlordiazePOXIDE HCL 25 MG CAPSULE PO SCH ×4 (06:25→22:14)
[2017-04-02 10:13] LABS: HEMATOCRIT 37.6 % (35.4-49); HEMOGLOBIN 12.3 GM/dL (11.7-16.9); MCH 32.4 pg (25.7-33.7); MCHC 32.7 g/dl (32.0-35.9); MEAN CELL VOLUME 98.9 fl (80-96); MEAN PLT VOLUME 7.8 fl (7.5-11.1); PLATELET COUNT 281 K/MM3 (134-434); RDW 12.9 % (11.9-15.9); WHITE BLOOD COUNT 6.9 K/mm3 (4.0-10.0)
[2017-04-02] MEDS: PRENATAL VITAMINS W/ FOLIC ACID TABLET (FP) PO SCH (10:47)
[2017-04-02] MEDS: NICOTINE 14 MG/24 HOURS TOPICAL PATCH TD SCH (10:48)
[2017-04-02 11:40] LABS: CHLORIDE 104 mmol/L (98-107); POTASSIUM 4.2 mmol/L (3.5-5.1); SODIUM 141 mmol/L (136-145)
[2017-04-02 12:10] LABS: ALBUMIN 3.6 g/dl (3.4-5.0); ALK PHOS 64 U/L (45-117); ANION GAP 10 (8-16); BILIRUBIN,TOTAL 0.5 mg/dL (0.2-1.0); BLOOD UREA NITROGEN 15 mg/dL (7-18); CO2 27 mmol/L (21-32); CREATININE 1.1 mg/dL (0.7-1.3); GLUCOSE,RANDOM 130 mg/dL (74-106); SGOT/AST 15 U/L (15-37); SGPT/ALT 23 U/L (12-78); TOT PROT 6.8 g/dl (6.4-8.2)
--- NOTE | 2017-04-02 13:59 | PN ---
[facility] CIWA - CIWA Score Nausea/Vomitin-No Nausea/No Vomiting Muscle Tremors: 3 Anxiety: 4-Mod. Anxious/Guarded Agitation: 2 Paroxysmal Sweats: 3 Orientation: 0-Oriented Tacttile Disturbances: 2-Mild Itch/Numbness/Burn Auditory Disturbances: 2-Mild Harshness/Frighten Visual Disturbances: 2-Mild Sensitivity Headache: 0-None Present CIWA-Ar Total Score: 18 BHS Progress Note (SOAP) Subjective: Tremors, Sweating, Fatigue, Anxious. Objective: PT. A & O X 3. NO ACUTE DISTRESS. 04/02/17 13:58 Vital Signs Temperature 96.3 F L 04/02/17 09:15 Pulse Rate 83 04/02/17 09:15 Respiratory Rate 16 04/02/17 09:15 Blood Pressure 112/69 04/02/17 09:15 O2 Sat by Pulse Oximetry (%) Laboratory Tests 04/01/17 04/02/17 04/02/17 22:40 07:00 07:10 WBC 6.9 RBC 3.80 L Hgb 12.3 Hct 37.6 MCV 98.9 H MCH 32.4 MCHC 32.7 RDW 12.9 Plt Count 281 MPV 7.8 Sodium Potassium Chloride Carbon Dioxide Anion Gap BUN Creatinine Creat Clearance w eGFR Random Glucose Calcium Total Bilirubin AST ALT Alkaline Phosphatase Total Protein Albumin Urine Color Yellow Urine Appearance Cloudy Urine pH 6.0 Ur Specific [place] 1.020 Urine Protein Negative Urine Glucose (UA) Negative Urine Ketones Negative Urine Blood Negative Urine Nitrite Negative Urine Bilirubin Negative Urine Urobilinogen Negative Ur Leukocyte Esterase Negative RPR Titer HIV 1&2 Antibody Screen Negative HIV P24 Antigen Negative 04/02/17 04/02/17 07:10 07:10 WBC RBC Hgb Hct MCV MCH MCHC RDW Plt Count MPV Sodium 141 Potassium 4.2 Chloride 104 Carbon Dioxide 27 Anion Gap 10 BUN 15 Creatinine 1.1 Creat Clearance w eGFR > 60 Random Glucose 130 H D Calcium 9.0 Total Bilirubin 0.5 D AST 15 ALT 23 Alkaline Phosphatase 64 Total Protein 6.8 Albumin 3.6 Urine Color Urine Appearance Urine pH Ur Specific [place] Urine Protein Urine Glucose (UA) Urine Ketones Urine Blood Urine Nitrite Urine Bilirubin Urine Urobilinogen Ur Leukocyte Esterase RPR Titer Nonreactive HIV 1&2 Antibody Screen HIV P24 Antigen LABS NOTED. Assessment: 04/02/17 13:58 WITHDRAWAL SYMPTOMS. Plan: CONTINUE DETOX. INCREASE DAILY PO FLUID INTAKE.
--- NOTE | 2017-04-02 15:13 | CONSULT ---
[facility] Psychiatric Consult - Data Date of interview: 04/02/17 Admission source: [facility] Identifying data: Readmission to [facility] for this 36 y/o AA male seeking detox treatment on for alcohol,marijuana and metamphetamine dependence.Patient is single,father of one,undomiciled,unemployed and supported by " female friends." Substance Abuse History: Confirmed by patient in this session.See details in current [facility] report ; Smoking Cessation. Smoking history: Current every day smoker. Have you smoked in the past 12 months: Yes. Aproximately how many cigarettes per day: 10. Cigars Per Day: 0. Hx Chewing Tobacco Use: No. Initiated information on smoking cessation: Yes. 'Breaking Loose' booklet given : 04/01/17. - Substance & Tx. History. Hx Alcohol Use: Yes. Hx Substance Use : Yes. Substance Use Type: Alcohol, Marijuana. Hx Substance Use Treatment: Yes (12/2016). - Substances Abused. Alcohol. Route: Oral. Frequency: Daily. Amount used: 7 24 oz cans beer. Age of first use: 20. Date of Last Use : 03/31/17. Marijuana/Hashish. Route: Smoking. Frequency: Daily. Amount used: 2-3 blunts. Age of first use: 18. Date of Last Use: 03/31/17. met. Route: Oral. Frequency: 1-3 times last 30 days. Amount used: 3 pills. Age of first use: 35. Date of Last Use: 03/30/17. Ectasy. Route: Oral. Frequency : 1-3 times last 30 days. Amount used: 3 pills. Age of first use: 35. Date of Last Use: 03/30/17 Medical History: Patient endorses good general health. Psychiatric History: Patient denies. Physical/Sexual Abuse/Trauma History: No history reported. Additional Comment: Urine Drug Screen Results: THC-Marijuana, MET- Methamphetamine.Noted. Mental Status Exam - Mental Status Exam Alert and Oriented to: Time, Place, Person Cognitive Function: Good Patient Appearance: Well Groomed Mood: Withdrawn, Hopeful Affect: Appropriate, Normal Range Patient Behavior: Fatigued, Cooperative Speech Pattern: Clear, Appropriate Voice Loudness: Normal Thought Process: Intact, Goal Oriented Thought Disorder: Not Present Hallucinations: Denies Suicidal Ideation: Denies Homicidal Ideation: Denies Insight/Judgement: Poor Sleep: Well Appetite: Good Muscle strength/Tone: Normal Gait/Station: Normal Psychiatric Findings - Problem List ([place] 1, 2,3) (1) Alcohol dependence with uncomplicated withdrawal Current Visit: Yes Status: Acute (2) Cannabis dependence, uncomplicated Current Visit: Yes Status: Acute (3) Nicotine dependence Current Visit: Yes Status: Acute Qualifiers: Nicotine product type: cigarettes Substance use status: in withdrawal Qualified Code(s): F17.213 - Nicotine dependence, cigarettes, with withdrawal (4) Amphetamine dependence Current Visit: Yes Status: Acute - Initial Treatment Plan Initial Treatment Plan: Psychoeducation.Detoxification in progress.Observation.
[2017-04-02] MEDS: THIAMINE HCL 100 MG TABLET (FP) PO SCH (22:14)
[2017-04-03] MEDS: chlordiazePOXIDE HCL 25 MG CAPSULE PO SCH ×3 (05:24→18:18)
--- NOTE | 2017-04-03 07:54 | EKG ---
Test Reason : Blood Pressure : / mmHG Vent. Rate : 071 BPM Atrial Rate : 071 BPM P-R Int : 154 ms QRS Dur : 094 ms QT Int : 398 ms P-R-T Axes : 067 074 057 degrees QTc Int : 432 ms NORMAL SINUS RHYTHM WITH SINUS ARRHYTHMIA MINIMAL VOLTAGE CRITERIA FOR LVH, MAY BE NORMAL VARIANT BORDERLINE ECG WHEN COMPARED WITH ECG OF 11-DEC-2016 22:04, NO SIGNIFICANT CHANGE WAS FOUND Confirmed by ELICIA WATTS MD ([id number]) on 04/03/2017 7:54:00 AM Referred By: Confirmed By:ELICIA WATTS MD
[2017-04-03] MEDS: PRENATAL VITAMINS W/ FOLIC ACID TABLET (FP) PO SCH (10:45)
[2017-04-03] MEDS: NICOTINE 14 MG/24 HOURS TOPICAL PATCH TD SCH (10:46)
--- NOTE | 2017-04-03 13:40 | PN ---
[facility] CIWA - CIWA Score Nausea/Vomitin-No Nausea/No Vomiting Muscle Tremors: 3 Anxiety: 4-Mod. Anxious/Guarded Agitation: 3 Paroxysmal Sweats: 3 Orientation: 0-Oriented Tacttile Disturbances: 1-Very Mild Itch/Numbness Auditory Disturbances: 0-None Visual Disturbances: 2-Mild Sensitivity Headache: 0-None Present CIWA-Ar Total Score: 16 BHS Progress Note (SOAP) Subjective: Anxious, sweating, Interrupted Sleep. Objective: PT. A & O X 3, OBSERVED AMBULATING ON UNIT. NO ACUTE DISTRESS. 04/03/17 13:41 Vital Signs Temperature 97 F L 04/03/17 12:58 Pulse Rate 64 04/03/17 12:58 Respiratory Rate 18 04/03/17 12:58 Blood Pressure 106/63 04/03/17 12:58 O2 Sat by Pulse Oximetry (%) Laboratory Tests 04/01/17 04/02/17 04/02/17 22:40 07:00 07:10 WBC 6.9 RBC 3.80 L Hgb 12.3 Hct 37.6 MCV 98.9 H MCH 32.4 MCHC 32.7 RDW 12.9 Plt Count 281 MPV 7.8 Sodium Potassium Chloride Carbon Dioxide Anion Gap BUN Creatinine Creat Clearance w eGFR Random Glucose Calcium Total Bilirubin AST ALT Alkaline Phosphatase Total Protein Albumin Urine Color Yellow Urine Appearance Cloudy Urine pH 6.0 Ur Specific [place] 1.020 Urine Protein Negative Urine Glucose (UA) Negative Urine Ketones Negative Urine Blood Negative Urine Nitrite Negative Urine Bilirubin Negative Urine Urobilinogen Negative Ur Leukocyte Esterase Negative RPR Titer HIV 1&2 Antibody Screen Negative HIV P24 Antigen Negative 04/02/17 04/02/17 07:10 07:10 WBC RBC Hgb Hct MCV MCH MCHC RDW Plt Count MPV Sodium 141 Potassium 4.2 Chloride 104 Carbon Dioxide 27 Anion Gap 10 BUN 15 Creatinine 1.1 Creat Clearance w eGFR > 60 Random Glucose 130 H D Calcium 9.0 Total Bilirubin 0.5 D AST 15 ALT 23 Alkaline Phosphatase 64 Total Protein 6.8 Albumin 3.6 Urine Color Urine Appearance Urine pH Ur Specific [place] Urine Protein Urine Glucose (UA) Urine Ketones Urine Blood Urine Nitrite Urine Bilirubin Urine Urobilinogen Ur Leukocyte Esterase RPR Titer Nonreactive HIV 1&2 Antibody Screen HIV P24 Antigen LABS NOTED. Assessment: 04/03/17 13:41 WITHDRAWAL SYMPTOMS. Plan: CONTINUE DETOX.
[2017-04-03] MEDS: chlordiazePOXIDE HCL 25 MG CAPSULE PO PRN (19:53)
[2017-04-03] MEDS: THIAMINE HCL 100 MG TABLET (FP) PO SCH (22:08)
[2017-04-03] MEDS: chlordiazePOXIDE 5 MG CAPSULE PO SCH (22:08)
[2017-04-04] MEDS: chlordiazePOXIDE 5 MG CAPSULE PO SCH ×3 (05:17→17:40)
[2017-04-04] MEDS: PRENATAL VITAMINS W/ FOLIC ACID TABLET (FP) PO SCH (10:44)
[2017-04-04] MEDS: NICOTINE 14 MG/24 HOURS TOPICAL PATCH TD SCH (10:44)
--- NOTE | 2017-04-04 13:14 | PN ---
BHS Progress Note (SOAP) Subjective: Anxious, Sweating. Objective: PT. A & O X 3, OBSERVED AMBULATING ON UNIT. NO ACUTE DISTRESS. 04/04/17 13:12 Vital Signs Temperature 96.1 F L 04/04/17 10:16 Pulse Rate 64 04/04/17 10:16 Respiratory Rate 18 04/04/17 10:16 Blood Pressure 108/67 04/04/17 10:16 O2 Sat by Pulse Oximetry (%) Laboratory Tests 04/01/17 04/02/17 04/02/17 22:40 07:00 07:10 WBC 6.9 RBC 3.80 L Hgb 12.3 Hct 37.6 MCV 98.9 H MCH 32.4 MCHC 32.7 RDW 12.9 Plt Count 281 MPV 7.8 Sodium Potassium Chloride Carbon Dioxide Anion Gap BUN Creatinine Creat Clearance w eGFR Random Glucose Calcium Total Bilirubin AST ALT Alkaline Phosphatase Total Protein Albumin Urine Color Yellow Urine Appearance Cloudy Urine pH 6.0 Ur Specific [place] 1.020 Urine Protein Negative Urine Glucose (UA) Negative Urine Ketones Negative Urine Blood Negative Urine Nitrite Negative Urine Bilirubin Negative Urine Urobilinogen Negative Ur Leukocyte Esterase Negative RPR Titer HIV 1&2 Antibody Screen Negative HIV P24 Antigen Negative 04/02/17 04/02/17 07:10 07:10 WBC RBC Hgb Hct MCV MCH MCHC RDW Plt Count MPV Sodium 141 Potassium 4.2 Chloride 104 Carbon Dioxide 27 Anion Gap 10 BUN 15 Creatinine 1.1 Creat Clearance w eGFR > 60 Random Glucose 130 H D Calcium 9.0 Total Bilirubin 0.5 D AST 15 ALT 23 Alkaline Phosphatase 64 Total Protein 6.8 Albumin 3.6 Urine Color Urine Appearance Urine pH Ur Specific [place] Urine Protein Urine Glucose (UA) Urine Ketones Urine Blood Urine Nitrite Urine Bilirubin Urine Urobilinogen Ur Leukocyte Esterase RPR Titer Nonreactive HIV 1&2 Antibody Screen HIV P24 Antigen LABS NOTED. Assessment: 04/04/17 13:12 WITHDRAWAL SYMPTOMS. Plan: CONTINUE DETOX.
[2017-04-04] MEDS: THIAMINE HCL 100 MG TABLET (FP) PO SCH (22:09)
[2017-04-04] MEDS: chlordiazePOXIDE HCL 10 MG CAPSULE PO SCH (22:09)
[2017-04-05] MEDS: chlordiazePOXIDE HCL 10 MG CAPSULE PO SCH (06:01)
[2017-04-05 06:20] VITALS: BP 119/63; PULSE 65; TEMP 97.3
[2017-04-05] MEDS: PRENATAL VITAMINS W/ FOLIC ACID TABLET (FP) PO SCH (09:30)
[2017-04-05] MEDS: NICOTINE 14 MG/24 HOURS TOPICAL PATCH TD SCH (09:30)
--- NOTE | 2017-04-05 16:37 | DS ---
[facility] Detox Discharge Summary Admission Date: 04/01/17 Discharge Date: 04/05/17 - History Present History: Alcohol Dependence, Cannabis Dependence Additional Comments: PATIENT GOING TO [facility] ([place], [place] FOR AFTERCARE. PATIENT WAS DISCHARGED FROM DETOX UNIT IN STABLE MEDICAL CONDITION. Pertinent Past History: Nicotine Dependence, Weight Loss. - Physical Exam Results Vital Signs: Vital Signs Temperature 97.3 F L 04/05/17 06:20 Pulse Rate 65 04/05/17 06:20 Respiratory Rate 18 04/05/17 06:20 Blood Pressure 119/63 04/05/17 06:20 O2 Sat by Pulse Oximetry (%) Pertinent Admission Physical Exam Findings: WITHDRAWAL SYMPTOMS. Laboratory Tests 04/01/17 04/02/17 04/02/17 22:40 07:00 07:10 WBC 6.9 RBC 3.80 L Hgb 12.3 Hct 37.6 MCV 98.9 H MCH 32.4 MCHC 32.7 RDW 12.9 Plt Count 281 MPV 7.8 Sodium Potassium Chloride Carbon Dioxide Anion Gap BUN Creatinine Creat Clearance w eGFR Random Glucose Calcium Total Bilirubin AST ALT Alkaline Phosphatase Total Protein Albumin Urine Color Yellow Urine Appearance Cloudy Urine pH 6.0 Ur Specific [place] 1.020 Urine Protein Negative Urine Glucose (UA) Negative Urine Ketones Negative Urine Blood Negative Urine Nitrite Negative Urine Bilirubin Negative Urine Urobilinogen Negative Ur Leukocyte Esterase Negative RPR Titer HIV 1&2 Antibody Screen Negative HIV P24 Antigen Negative 04/02/17 04/02/17 07:10 07:10 WBC RBC Hgb Hct MCV MCH MCHC RDW Plt Count MPV Sodium 141 Potassium 4.2 Chloride 104 Carbon Dioxide 27 Anion Gap 10 BUN 15 Creatinine 1.1 Creat Clearance w eGFR > 60 Random Glucose 130 H D Calcium 9.0 Total Bilirubin 0.5 D AST 15 ALT 23 Alkaline Phosphatase 64 Total Protein 6.8 Albumin 3.6 Urine Color Urine Appearance Urine pH Ur Specific [place] Urine Protein Urine Glucose (UA) Urine Ketones Urine Blood Urine Nitrite Urine Bilirubin Urine Urobilinogen Ur Leukocyte Esterase RPR Titer Nonreactive HIV 1&2 Antibody Screen HIV P24 Antigen LABS NOTED. - Treatment Hospital Course: Detox Protocol Followed, Detoxed Safely, Responded well, Discharged Condition Good, Rehab Referral Accepted Patient has Accepted a Rehab Referral to: [facility] ([place], [place] - Medication Discharge Medications: Ambulatory Orders NK [No Known Home Medication] 12/11/16 - Diagnosis (1) Alcohol dependence with uncomplicated withdrawal Status: Acute (2) Nicotine dependence Status: Acute Qualifiers: Nicotine product type: cigarettes Substance use status: in withdrawal Qualified Code(s): F17.213 - Nicotine dependence, cigarettes, with withdrawal (3) Weight loss Status: Acute (4) Depression (emotion) Status: Suspected Qualifiers: Depression Type: dysthymia Qualified Code(s): F34.1 - Dysthymic disorder (5) Amphetamine dependence Status: Acute (6) Cannabis dependence, uncomplicated Status: Acute - AMA Did Patient Leave Against Medical Advice: No
== END 2017-04-05 09:35 | disposition home or self-care (01) | DRG 775 ==
LOC: YASAS 12:11 → Y3N 17:52
PROVIDERS: ADMIT Internal Medicine; ATTEND Internal Medicine
PROC: HZ2ZZZZ Detoxification Services for Substance Abuse Treatment (ICD-10-PCS; principal; 2017-04-01)
DX: F10.230 Alcohol dependence with withdrawal, uncomplicated (principal); F15.20 Other stimulant dependence, uncomplicated; F12.20 Cannabis dependence, uncomplicated; F17.213 Nicotine dependence, cigarettes, with withdrawal; F34.1 Dysthymic disorder; R63.4 Abnormal weight loss; Z68.24 Body mass index [BMI] 24.0-24.9, adult
CPT/HCPCS: 36415; 80053; 81003; 85027; 86593; 87389; 93005; 93010